=== PATIENT | female | born 1940 ===

== ENCOUNTER 2017-02-18 15:40 | Emergency (ER) | payer MEDICARE, MEDICAID ==
[2017-02-18 16:16] VITALS: BP 126/71; PULSE 64; RESP 18; TEMP 98; O2SAT 99
--- NOTE | 2017-02-18 16:58 | ED PDOC ---
Lower Extremity Pain/Injury Time Seen by Provider: 02/18/17 16:24 Chief Complaint (Nursing): Lower Extremity Problem/Injury Chief Complaint (Provider): Lower Extremity Problem/Injury History Per: Patient History/Exam Limitations: no limitations Onset/Duration Of Symptoms: Days (1 Week ) Severity: Mild Additional Complaint(s): 76 y/o female patient presenting to the ED with right knee pain. PT states that the pain has been present for one week and she has taking Motrin but it did not resolve the problem. She denies falling or any trauma and no past medical history in relation to the knee. - Knee Description Of Injury: Other (non-traumatic) - Risk Factors DVT Risk Factors: Pos: None, Decreased Mobility Past Medical History Reviewed: Historical Data, Nursing Documentation, Vital Signs Vital Signs: Last Vital Signs Temp 98.0 F 02/18/17 16:14 Pulse 64 02/18/17 16:14 Resp 18 02/18/17 16:14 BP 126/71 02/18/17 16:14 Pulse Ox 99 02/18/17 16:14 - Medical History PMH: Arthritis, Back Problems, Diabetes, HTN - Surgical History Surgical History: No Surg Hx - Family History Family History: States: Unknown Family Hx - Living Arrangements Living Arrangements: With Family - Social History Current smoker - smoking cessation education provided: No Alcohol: None Drugs: Denies - Home Medications Home Medications: Ambulatory Orders Medication Instructions Recorded Cyclobenzaprine [Cyclobenzaprine 10 mg PO TID PRN #15 tab 10/19/16 HCl] Losartan/Hydrochlorothiazide 1 tab PO DAILY 10/19/16 [Losartan-Hctz 50-12.5 mg Tab] Metoprolol Tartrate [Lopressor] 25 mg PO DAILY 10/19/16 Omeprazole [Omeprazole] 20 mg PO DAILY 10/19/16 SITagliptin [Januvia] 100 mg PO DAILY 10/19/16 Simvastatin [Simvastatin] 40 mg PO DAILY 10/19/16 metFORMIN [glucOPHAGE] 500 mg PO BID 10/19/16 traMADol [Ultram] 50 mg PO Q6H PRN #15 tab 02/18/17 - Allergies Allergies/Adverse Reactions: Allergies Allergy/AdvReac Type Severity Reaction Status Date / Time No Known Allergies Allergy Verified 02/18/17 16:13 Review of Systems ROS Statement: Except As Marked, All Systems Reviewed And Found Negative Musculoskeletal: Positive for: Leg Pain ((Right Knee Pain localized)) Physical Exam - Reviewed Nursing Documentation Reviewed: Yes Vital Signs Reviewed: Yes - Physical Exam Appears: Positive for: Non-toxic, No Acute Distress Skin: Positive for: Normal Color, Warm Eye Exam: Positive for: Normal appearance ENT: Positive for: Normal ENT Inspection Neck: Positive for: Normal Respiratory: Negative for: Accessory Muscle Use, Respiratory Distress Extremity: Positive for: Normal ROM ((Right Knee)Pulses intact). Negative for: Pedal Edema, Deformity Neurologic/Psych: Positive for: Alert, Oriented. Negative for: Motor/Sensory Deficits - ECG O2 Sat by Pulse Oximetry: 99 (RA) Pulse Ox Interpretation: Normal Medical Decision Making Medical Decision Making: Time:1624 Initial impression: Right Knee Pain Initial plan: --Tramadol (Ultram) 50MG --Knee 3 views X-Ray RT Scribe Attestation: Documented by Dorina Read acting as a scribe for ALEJANDRINA Dominguez MD Scribe Attestation: All medical record entries made by the Scribe were at my direction and personally dictated by me. I have reviewed the chart and agree that the record accurately reflects my personal performance of the history, physical exam, medical decision making, and the department course for this patient. I have also personally directed, reviewed, and agree with the discharge instructions and disposition. Disposition - Clinical Impression Clinical Impression: Arthritis - Patient ED Disposition Is Patient to be Admitted: No Counseled Patient/Family Regarding: Diagnosis, Need For Followup, Rx Given - Disposition Referrals: [facility] [place] [Outside] [facility] [place] [Outside] Disposition: Routine/Home Disposition Time: 18:16 Condition: GOOD Prescriptions: traMADol [Ultram] 50 mg PO Q6H PRN #15 tab PRN Reason: Pain Instructions: Arthritis (ED) Print Language: GREENLANDIC
--- NOTE | 2017-02-18 18:53 | RAD ---
PROCEDURE: Right Knee Radiographs. HISTORY: knee pain, non-traumatic COMPARISON: None. FINDINGS: BONES: Normal. No fracture. JOINTS: Normal. No osteoarthritis. JOINT EFFUSION: None. OTHER FINDINGS: None. IMPRESSION: No acute findings related to/accounting for the clinical presentation.
== END 2017-02-18 18:43 | disposition home or self-care (01) ==
LOC: H.ER 15:40
DX: M17.11 Unilateral primary osteoarthritis, right knee (principal)

== ENCOUNTER 2017-03-09 13:55 | Inpatient (IN) | payer MEDICAID, MEDICARE ==
[2017-03-09 13:55] VITALS: BMI 30.9
[2017-03-09] MEDS ORDERED: Iohexol 240 (50 ml) PO STA (14:31)
[2017-03-09] MEDS ORDERED: Sodium Chloride 0.9% 1,000 ML IV STA (14:32)
[2017-03-09] MEDS ORDERED: Sodium Chloride 0.9% 500 ML IV STA ×2 (14:32→20:25)
[2017-03-09] MEDS ORDERED: Iohexol 240 (50 ml) ONE (14:33)
--- NOTE | 2017-03-09 14:49 | ED PDOC ---
HPI: Abdomen <Patt Moran - Last Filed: 03/09/17 18:57> Chief Complaint (Provider): Abdominal Pain History Per: Patient History/Exam Limitations: no limitations Onset/Duration Of Symptoms: Hrs (1) Current Symptoms Are (Timing): Still Present Severity: Moderate Quality Of Discomfort: "Pain" Associated Symptoms: Nausea, Vomiting. denies: Chills, Diarrhea, Chest Pain, Constipation <Amaris Bone - Last Filed: 03/18/17 09:43> Time Seen by Provider: 03/09/17 14:10 Chief Complaint (Nursing): Abdominal Pain Additional Complaint(s): Antonina Allred is a 76 y/o female, with a past medical history of Diabetes Mellitus, Hypertension, and Cardiac Disease, presenting to the ER on 03/09/2017 with complaints of abdominal pain associated with nausea and vomiting onset one hour prior to arrival. Patient is also complaining of back pain but she denies any chills, chest pain, constipation, diarrhea or shortness of breath. Patient also states she took pain medications before arriving to the ED. (Amaris Bone) Past Medical History <Patt Moran - Last Filed: 03/09/17 18:57> Reviewed: Historical Data, Nursing Documentation, Vital Signs - Medical History PMH: Arthritis, Back Problems, Diabetes, HTN - Surgical History Surgical History: Appendectomy Other surgeries: cardiac surgery - Family History Family History: States: Unknown Family Hx - Social History Current smoker - smoking cessation education provided: No Alcohol: None Drugs: Denies <Amaris Bone - Last Filed: 03/18/17 09:43> Vital Signs: Last Vital Signs Temp 98.5 F 03/11/17 12:00 Pulse 65 03/11/17 12:00 Resp 18 03/11/17 12:00 BP 111/71 03/11/17 12:00 Pulse Ox 96 03/11/17 12:00 - Home Medications Home Medications: Ambulatory Orders Medication Instructions Recorded Losartan/Hydrochlorothiazide 1 tab PO DAILY 10/19/16 [Losartan-Hctz 50-12.5 mg Tab] Metoprolol Tartrate [Lopressor] 25 mg PO DAILY 10/19/16 SITagliptin [Januvia] 100 mg PO DAILY 10/19/16 Simvastatin 40 mg PO HS 10/19/16 metFORMIN [glucOPHAGE] 500 mg PO BID 10/19/16 Alendronate [Fosamax] 70 mg PO WE 03/09/17 Aspirin [Ecotrin] 81 mg PO DAILY 03/09/17 Dulaglutide [Trulicity] 0.75 mg SC 03/09/17 Ergocalciferol (Vitamin D2) 50,000 unit PO WE 03/09/17 [Vitamin D2] Insulin Glargine, Recombina 10 unit SC HS 03/09/17 [Lantus] Multivitamin/Iron/Folic Acid 1 tab PO DAILY 03/09/17 [Centrum Women Tablet] Omeprazole 40 mg PO DAILY 03/09/17 - Allergies Allergies/Adverse Reactions: Allergies Allergy/AdvReac Type Severity Reaction Status Date / Time No Known Allergies Allergy Verified 03/09/17 13:58 Review of Systems ROS Statement: Except As Marked, All Systems Reviewed And Found Negative Constitutional: Negative for: Chills Cardiovascular: Negative for: Chest Pain Respiratory: Negative for: Shortness of Breath Gastrointestinal: Positive for: Nausea, Vomiting, Abdominal Pain. Negative for : Diarrhea, Constipation Musculoskeletal: Positive for: Back Pain <Amaris Bone F - Last Filed: 03/18/17 09:43> Physical Exam - Reviewed Nursing Documentation Reviewed: Yes Vital Signs Reviewed: Yes - Physical Exam Appears: Positive for: Non-toxic, In Acute Distress ((+) moderate painful distress ) Head Exam: Positive for: ATRAUMATIC Skin: Positive for: Normal Color. Negative for: Rash Eye Exam: Positive for: Normal appearance, EOMI, PERRL ENT: Positive for: Normal ENT Inspection. Negative for: Pharyngeal Erythema, Tonsillar Exudate, Tonsillar Swelling Neck: Positive for: Normal, Painless ROM, Supple Cardiovascular/Chest: Positive for: Regular Rate, Rhythm. Negative for: Murmur Respiratory: Positive for: Normal Breath Sounds. Negative for: Wheezing, Respiratory Distress Gastrointestinal/Abdominal: Positive for: Normal Exam, Tenderness ((+) generalized ). Negative for: Guarding, Rebound Back: Positive for: Normal Inspection. Negative for: L CVA Tenderness, R CVA Tenderness Extremity: Positive for: Normal ROM. Negative for: Deformity, Swelling Neurologic/Psych: Positive for: Alert, Oriented. Negative for: Motor/Sensory Deficits <Amaris Bone F - Last Filed: 03/18/17 09:43> - Laboratory Results Result Diagrams: 03/09/17 15:10 03/09/17 15:10 <Patt Moran - Last Filed: 03/09/17 18:57> - Laboratory Results Result Diagrams: 03/09/17 15:10 03/09/17 15:10 - ECG O2 Sat by Pulse Oximetry: 93 Pulse Ox Interpretation: Abnormal <Amaris Bone - Last Filed: 03/18/17 09:43> - ECG Interpretation Of ECG: ST @ 123, TWI I, aVL (changed from 10/19/16). (Amaris Bone) Medical Decision Making <Patt Moran - Last Filed: 03/09/17 18:57> <Amaris Bnoe - Last Filed: 03/18/17 09:43> Medical Decision Making: Patient signed out to me by Dr. Bone and a 76 y/o F pending CT to r/o PE and assess for intrabdominal pathology. CT negative for PE but shows prominence at head of pancreas and MRI reccommended as pancreatic head lesion cannot be ruled out. No other acute intrabdominal pathology. Udip shows negative nitrates but trace leukocytes. Patient denies dysuria and has normal wbc. Ucx sent. Dr. Bone reported that ekg was changed from prior, trop x 1 negative and patient needed tele observation for ekg change due to multiple risk factors. Paged Dr. Mishra, PMD and will transfer to tele observation (Patt Moran) 14:10 Initial Impression- 76 y/o female with generalized abdominal pain Initial Plan- * CT Abd Pelvis PO & IV * EKG * CMP * Lipase * Urine Dip * CBC w/ differential * PTT * PT * Omnipaque 50 ml PO * Morphine 2 mg IV * Sodium Chloride 1,000 ml IV * Zofran 4 mg IV * Urinalysis Pt will be placed under ED Observation. See ED OBS for further progress Documented by Brian Akhtar, acting as a scribe for Amaris Bone MD All medical record entries made by the Scribe were at my direction and personally dictated by me. I have reviewed the chart and agree that the record accurately reflects my personal performance of the history, physical exam, medical decision making, and the department course for this patient. I have also personally directed, reviewed, and agree with the discharge instructions and disposition. (Amaris Bone) ED OBSERVATION <Patt Moran - Last Filed: 03/09/17 18:57> Date of observation admission: 03/09/17 Time of observation admission: 14:35 <Amaris Bone - Last Filed: 03/18/17 09:43> - Observation admission statement Patient is being placed in observation because:: Secondary to extensive ED workup (Amaris Bone) - Goals of Observation Goals of observation are:: Pending Labs, CT results, re-evaluation and disposition. (Amaris Bone) Disposition <Patt Moran - Last Filed: 03/09/17 18:57> - Patient ED Disposition Is Patient to be Admitted: Transfer of Care - Disposition Disposition: Transfer of Care Disposition Time: 17:00 Patient Signed Over To: Patt Moran <Amaris Bone - Last Filed: 03/18/17 09:43> - Clinical Impression Clinical Impression: Abdominal pain - Disposition Condition: STABLE
[2017-03-09 15:23] LABS: BASO % 0.2 % (0.0-2.0); EOS % 0.5 % (0.0-4.0); HEMATOCRIT 43.4 % (34.0-47.0); LYMPH # 0.6 K/uL (1.0-4.3); LYMPH % 8.6 % (20.0-40.0); MEAN CELL VOLUME 80.3 fl (81.0-99.0); MEAN CORPUSCULAR HEMOGLOBIN 25.9 pg (27.0-31.0); MEAN CORPUSCULAR HGB CONC 32.3 g/dL (33.0-37.0); MEAN PLATELET VOLUME 9.2 fl (7.2-11.7); MONO # 0.1 K/uL (0.0-0.8); MONO % 0.8 % (0.0-10.0); NEUT # 6.6 K/uL (1.8-7.0); NEUT % 89.9 % (50.0-75.0); NRBC % 0.2 % (0.0-0.0); PLATELET COUNT 263 K/uL (130-400); RED CELL DISTRIBUTION WIDTH 15.8 % (11.5-14.5); WHITE BLOOD COUNT 7.3 K/uL (4.8-10.8)
[2017-03-09 15:37] LABS: ALB/GLOB RATIO 1.1 (1.0-2.1); ALKALINE PHOSPHATASE 110 U/L (38-126); ALT/SGPT 35 U/L (9-52); AST/SGOT 37 U/L (14-36); BILIRUBIN,TOTAL 0.8 mg/dl (0.2-1.3); BLOOD UREA NITROGEN 19 mg/dl (7-17); CALCIUM 9.2 mg/dL (8.4-10.2); CARBON DIOXIDE 28 mmol/L (22-30); CHLORIDE 100 mmol/L (98-107); GFR AFRICAN-AMERICAN > 60; GLUCOSE,RANDOM 112 mg/dL (65-105); LIPASE 144 U/L (23-300); SODIUM 142 mmol/l (132-148)
[2017-03-09 15:43] LABS: POTASSIUM 3.8 MMOL/L (3.6-5.0)
[2017-03-09 16:07] LABS: PARTIAL THROMBOPLASTIN TIME 22.9 Seconds (25.6-37.1)
[2017-03-09] MEDS ORDERED: Iodixanol 320 MG/ML 100 ML BOTTLE IV ONE (16:28)
[2017-03-09] MEDS ORDERED: Sodium Chloride 0.9% 50 ML IV ONE (16:28)
[2017-03-09 17:16] LABS: EOSINOPHIL 1 % (0-7); NEUTROPHIL 85 % (42-75); TOTAL CELLS COUNTED 100
--- NOTE | 2017-03-09 18:27 | CT ---
PROCEDURE: CT Chest, Abdomen and Pelvis with intravenous contrast HISTORY: Tachycardia COMPARISON: None. TECHNIQUE: IV dose administered: 95 cc Visipaque 320 contrast Radiation dose: Total exam DLP = 1445.36 mGy-cm. This CT exam was performed using one or more of the following dose reduction techniques: Automated exposure control, adjustment of the mA and/or kV according to patient size, and/or use of iterative reconstruction technique. . This study is limited due to large body habitus and suboptimal bolus injection -timing. FINDINGS: CT CHEST WITH CONTRAST: Note that the examination is LUNGS: Lung bermeo are clear without infiltrate effusion or basilar pneumothorax. . Eventration of the left hemidiaphragm. There appears to be some mild atelectasis and or scarring changes in the left lung base and lingular region. Localized pleural fat seen in the left upper lobe along the posterolateral convexity. No evidence of effusion or pneumothorax. MEDIASTINUM: Visualized portions of the pulmonary trunk, right and left main, lobar and proximal segmental branches of the pulmonary arteries appear relatively well opacified with no definitive filling defects seen to suggest central pulmonary embolus. The distal segmental and subsegmental branches are poorly seen due to at aforementioned artifact. Pulmonary trunk measures approximately 2.8 cm. Heart size is within range of normal. There is mild left ventricular hypertrophy. Ascending thoracic aorta measures approximately 3.0 cm and descending thoracic aorta measures approximately 2.4 5 cm. Central airways are midline and patent. No endobronchial lesions. LYMPH NODES: No significant mediastinal or hilar adenopathy. PLEURA: Unremarkable. No pneumothorax. No pleural fluid. BONES: There is mild straightening of the normal thoracic kyphosis however partial/endovaginal stat. OTHER FINDINGS: None. CT ABDOMEN AND PELVIS: LIVER: Liver is borderline enlarged measuring 18 cm in CC dimension. No obvious hepatic mass or collection. GALLBLADDER AND BILE DUCTS: Gallbladder is physiologically distended. No evidence of intraluminal gallbladder calculi. PANCREAS: Unremarkable.The pancreatic duct is slightly prominent at the level of the pancreatic head. Pancreatic head is slightly heterogeneous as well. Recommend follow-up MRI of the pancreas for further evaluation. SPLEEN: Spleen exhibits normal size and attenuation pattern without mass collection or calcification. ADRENALS: No adrenal lesions. KIDNEYS AND URETERS: Kidneys that demonstrate relatively symmetric nephrograms. No evidence of nephrolithiasis or hydronephrosis. Mild nonspecific infiltration changes seen in the perinephric fat. VASCULATURE: Unremarkable. No aortic aneurysm. BOWEL: Evaluation of the bowel is somewhat limited due to the low incomplete opacification. Stomach is distended. Visualized loops of small bowel exhibit normal contour and caliber. No evidence of acute mechanical small bowel obstruction. APPENDIX: Appendix is not seen with any certainty PERITONEUM: Unremarkable. No free fluid. No free air. Small fat containing umbilical hernia. LYMPH NODES: Few small nonspecific retroperitoneal lymph nodes. BLADDER: Urinary bladder is physiologically distended. No evidence of intraluminal urinary bladder calculi. REPRODUCTIVE: The uterus unremarkable. BONES: Mild multilevel degenerative spondylosis of the thoracic and lumbar spine. There is a localized of mild kyphosis centered at the T12-L1 level likely due to minor chronic anterior wedge deformities of the T12 and L1 segments. No acute fracture seen. . OTHER FINDINGS: None. IMPRESSION: Limited evaluation for pulmonary embolus as above. No definitive evidence of central pulmonary embolus. Eventration left hemidiaphragm with atelectasis and or scarring changes left lung base and left lingular region. Slightly heterogeneous appearance of the head of the pancreas with slight prominence of the pancreatic duct at the level of the head and pancreatic body. Possibility of underlying pancreatic head lesion not excluded. Recommend followup MRI of the pancreas for further evaluation Mild nonspecific infiltration changes within the perinephric fat bilaterally.
[2017-03-09 18:32] LABS: RBC URINE 3 /hpf (0-3); URINE BILIRUBIN NEGATIVE (NEGATIVE); URINE BLOOD NEGATIVE (NEGATIVE); URINE COLOR YELLOW (YELLOW); URINE GLUCOSE (UA) NEG (Normal); URINE KETONE NEGATIVE (NEGATIVE); URINE LEUKOCYTE ESTERASE TRACE Leu/uL (Negative); URINE PROTEIN 100 mg/dL (NEGATIVE); URINE UROBILINOGEN 0.2-1.0 mg/dL (0.2-1.0); WBC URINE 4 /hpf (0-5)
[2017-03-09] MEDS: Insulin Lispro (humaLOG) 100 Units/ml Inj SC SCH (23:00)
[2017-03-10] MEDS: Sodium Chloride 0.9% 1,000 ML IV SCH ×3 (00:14→20:34)
[2017-03-10] MEDS: Insulin Detemir 100 Units/ml Inj SC SCH ×3 (00:16→22:09)
[2017-03-10] MEDS: Insulin Lispro (humaLOG) 100 Units/ml Inj SC SCH ×4 (06:37→22:02)
[2017-03-10] MEDS ORDERED: MULTIVITAMIN PO SCH (09:00)
[2017-03-10] MEDS ORDERED: FOLIC ACID PO SCH (09:00)
[2017-03-10] MEDS ORDERED: IRON PO SCH (09:00)
[2017-03-10] MEDS ORDERED: Ergocalciferol 50,000 Intl Units Cap PO SCH (09:00)
[2017-03-10] MEDS: Enoxaparin 40 mg Syringe SC SCH (09:33)
[2017-03-10] MEDS: Multivitamin With Minerals Tab PO SCH (09:33)
[2017-03-10] MEDS: Pantoprazole 40 mg EC Tab PO SCH (09:34)
--- NOTE | 2017-03-10 12:23 | CP.PCM.CON ---
History of Present Illness - History of Present Illness History of Present Illness: 76 yo female with pmh diabetes mellitus and hypertension admitted with nausea, vomiting abd pain. No chest pain reported. Troponin negative. Nonspecific st-t changes on EKG Past Patient History - Past Medical History & Family History Past Medical History?: Yes - Past Social History Smoking Status: Never Smoked - CARDIAC Hx Cardiac Disorders: Yes (HTN/ High cholesterol) Hx Hypertension: Yes - PULMONARY Hx Respiratory Disorders: No - NEUROLOGICAL Hx Neurological Disorder: No - HEENT Hx HEENT Problems: No - RENAL Hx Chronic Kidney Disease: No - ENDOCRINE/METABOLIC Hx Endocrine Disorders: Yes (DM II) Hx Diabetes Mellitus Type 2: Yes - HEMATOLOGICAL/ONCOLOGICAL Hx Blood Disorders: No Hx AIDS: No Hx Human Immunodeficiency Virus (HIV): No - INTEGUMENTARY Hx Dermatological Problems: No - MUSCULOSKELETAL/RHEUMATOLOGICAL Hx Musculoskeletal Disorders: Yes (Back Problems/ Bursitis) Hx Arthritis: Yes Hx Falls: No - GASTROINTESTINAL Hx Gastrointestinal Disorders: No - GENITOURINARY/GYNECOLOGICAL Hx Genitourinary Disorders: No - PSYCHIATRIC Hx Psychophysiologic Disorder: No Hx Substance Use: No - SURGICAL HISTORY Hx Appendectomy: Yes - ANESTHESIA Hx Anesthesia: Yes Hx Anesthesia Reactions: No Hx Malignant Hyperthermia: No Meds Allergies/Adverse Reactions: Allergies Allergy/AdvReac Type Severity Reaction Status Date / Time No Known Allergies Allergy Verified 03/09/17 13:58 - Medications Medications: Current Medications Acetaminophen (Tylenol 325mg Tab) 650 mg PO Q6 PRN PRN Reason: Pain, Mild (1-3) Last Admin: 03/10/17 00:20 Dose: 650 mg Alendronate Sodium (Fosamax) 70 mg PO WE [facility] Aspirin (Ecotrin) 81 mg PO DAILY [facility] Last Admin: 03/10/17 09:34 Dose: 81 mg Atorvastatin Calcium (Lipitor) 20 mg PO HS [facility] Last Admin: 03/10/17 00:12 Dose: 20 mg Enoxaparin Sodium (Lovenox) 40 mg SC DAILY [facility] PRN Reason: Protocol Last Admin: 03/10/17 09:33 Dose: 40 mg Ergocalciferol (Drisdol 50,000 Intl Units Cap) 1 cap PO WE [facility] Last Admin: 03/10/17 09:34 Dose: 1 cap Sodium Chloride (Sodium Chloride 0.9%) 1,000 mls @ 100 mls/hr IV .Q10H [facility] Stop: 03/10/17 23:54 Last Admin: 03/10/17 00:14 Dose: 100 mls/hr Insulin Detemir (Levemir) 10 units SC HS [facility] Last Admin: 03/10/17 00:16 Dose: 10 u Insulin Human Lispro (Humalog) 0 units SC ACHS [facility] PRN Reason: Protocol Last Admin: 03/10/17 06:37 Dose: Not Given Metformin HCl (Glucophage) 500 mg PO BID [facility] Last Admin: 03/10/17 09:35 Dose: Not Given Multivitamins/Minerals (Therapeutic-M Tab) 1 tab PO DAILY [facility] Last Admin: 03/10/17 09:33 Dose: 1 tab Ondansetron HCl (Zofran Inj) 4 mg IVP Q4 PRN PRN Reason: Nausea/Vomiting Pantoprazole Sodium (Protonix Ec Tab) 40 mg PO DAILY [facility] Last Admin: 03/10/17 09:34 Dose: 40 mg Sitagliptin Phosphate (Januvia) 100 mg PO DAILY [facility] Last Admin: 03/10/17 09:34 Dose: 100 mg Physical Exam - Neck Exam Neck exam: Positive for: Normal Inspection - Respiratory Exam Respiratory Exam: NORMAL BREATHING PATTERN - Cardiovascular Exam Cardiovascular Exam: REGULAR RHYTHM - GI/Abdominal Exam GI & Abdominal Exam: Normal Bowel Sounds - Extremities Exam Extremities exam: Positive for: normal inspection Results - Vital Signs Recent Vital Signs: Last Vital Signs Temp 98.5 F 03/10/17 11:59 Pulse 73 03/10/17 11:59 Resp 18 03/10/17 11:59 BP 96/61 L 03/10/17 11:59 Pulse Ox 99 03/10/17 11:59 - Labs Result Diagrams: 03/09/17 15:10 03/09/17 15:10 Labs: Laboratory Results - last 24 hr 03/09/17 03/09/17 03/09/17 14:36 15:10 15:10 WBC 7.3 RBC 5.41 H Hgb 14.0 D Hct 43.4 MCV 80.3 L MCH 25.9 L MCHC 32.3 L RDW 15.8 H Plt Count 263 MPV 9.2 Neut % (Auto) 89.9 H Lymph % (Auto) 8.6 L [place] % (Auto) 0.8 Eos % (Auto) 0.5 Baso % (Auto) 0.2 Neut # 6.6 Lymph # 0.6 L [place] # 0.1 Eos # 0.0 Baso # 0.0 Neutrophils % (Manual) 85 H Lymphocytes % (Manual) 13 L Monocytes % (Manual) 1 Eosinophils % (Manual) 1 Platelet Estimate Normal PT INR APTT D-Dimer, Quantitative Sodium 142 Potassium 3.8 Chloride 100 Carbon Dioxide 28 Anion Gap 18 BUN 19 H Creatinine 0.7 Est GFR ( Amer) > 60 Est GFR (Non-Af Amer) > 60 POC Glucose (mg/dL) 97 Random Glucose 112 H Calcium 9.2 Total Bilirubin 0.8 AST 37 H D ALT 35 Alkaline Phosphatase 110 Troponin I < 0.0120 Total Protein 8.0 Albumin 4.2 Globulin 3.8 Albumin/Globulin Ratio 1.1 Lipase 144 Urine Color Urine Clarity Urine pH Ur Specific Mcd[place] Urine Protein Urine Glucose (UA) Urine Ketones Urine Blood Urine Nitrate Urine Bilirubin Urine Urobilinogen Ur Leukocyte Esterase Urine RBC (Auto) Urine Microscopic WBC Ur Squamous Epith Cells 03/09/17 03/09/17 03/09/17 15:10 18:00 21:13 WBC RBC Hgb Hct MCV MCH MCHC RDW Plt Count MPV Neut % (Auto) Lymph % (Auto) [place] % (Auto) Eos % (Auto) Baso % (Auto) Neut # Lymph # [place] # Eos # Baso # Neutrophils % (Manual) Lymphocytes % (Manual) Monocytes % (Manual) Eosinophils % (Manual) Platelet Estimate PT 11.1 INR 1.0 APTT 22.9 L D-Dimer, Quantitative 3817 H Sodium Potassium Chloride Carbon Dioxide Anion Gap BUN Creatinine Est GFR ( Amer) Est GFR (Non-Af Amer) POC Glucose (mg/dL) 168 H Random Glucose Calcium Total Bilirubin AST ALT Alkaline Phosphatase Troponin I Total Protein Albumin Globulin Albumin/Globulin Ratio Lipase Urine Color Yellow Urine Clarity Slighty-cloudy Urine pH 6.0 Ur Specific Mcdaniels 1.013 Urine Protein 100 Urine Glucose (UA) Neg Urine Ketones Negative Urine Blood Negative Urine Nitrate Negative Urine Bilirubin Negative Urine Urobilinogen 0.2-1.0 Ur Leukocyte Esterase Trace Urine RBC (Auto) 3 Urine Microscopic WBC 4 Ur Squamous Epith Cells 4 03/10/17 03/10/17 03/10/17 00:00 05:00 05:04 WBC RBC Hgb Hct MCV MCH MCHC RDW Plt Count MPV Neut % (Auto) Lymph % (Auto) [place] % (Auto) Eos % (Auto) Baso % (Auto) Neut # Lymph # [place] # Eos # Baso # Neutrophils % (Manual) Lymphocytes % (Manual) Monocytes % (Manual) Eosinophils % (Manual) Platelet Estimate PT INR APTT D-Dimer, Quantitative Sodium Potassium Chloride Carbon Dioxide Anion Gap BUN Creatinine Est GFR ( Amer) Est GFR (Non-Af Amer) POC Glucose (mg/dL) 142 H Random Glucose Calcium Total Bilirubin AST ALT Alkaline Phosphatase Troponin I < 0.0120 < 0.0120 Total Protein Albumin Globulin Albumin/Globulin Ratio Lipase Urine Color Urine Clarity Urine pH Ur Specific Mcd[place]iels Urine Protein Urine Glucose (UA) Urine Ketones Urine Blood Urine Nitrate Urine Bilirubin Urine Urobilinogen Ur Leukocyte Esterase Urine RBC (Auto) Urine Microscopic WBC Ur Squamous Epith Cells 03/10/17 11:20 WBC RBC Hgb Hct MCV MCH MCHC RDW Plt Count MPV Neut % (Auto) Lymph % (Auto) [place] % (Auto) Eos % (Auto) Baso % (Auto) Neut # Lymph # [place] # Eos # Baso # Neutrophils % (Manual) Lymphocytes % (Manual) Monocytes % (Manual) Eosinophils % (Manual) Platelet Estimate PT INR APTT D-Dimer, Quantitative Sodium Potassium Chloride Carbon Dioxide Anion Gap BUN Creatinine Est GFR ( Amer) Est GFR (Non-Af Amer) POC Glucose (mg/dL) 168 H Random Glucose Calcium Total Bilirubin AST ALT Alkaline Phosphatase Troponin I Total Protein Albumin Globulin Albumin/Globulin Ratio Lipase Urine Color Urine Clarity Urine pH Ur Specific Mcd[place]iels Urine Protein Urine Glucose (UA) Urine Ketones Urine Blood Urine Nitrate Urine Bilirubin Urine Urobilinogen Ur Leukocyte Esterase Urine RBC (Auto) Urine Microscopic WBC Ur Squamous Epith Cells Assessment & Plan - Assessment and Plan (Free Text) Assessment: No acute coronary syndrome. EKG changes nonspecific. Troponin is negative Plan: Proceed with w/u for etiology of abdominal pain No cardiac intervention at this time Can f/u as outpt
--- NOTE | 2017-03-10 15:50 | CP.PCM.HP ---
History of Present Illness - History of Present Illness History of Present Illness: 76 years old H/F presented with frequent vomiting and epigastric pain started on the day of admission. Patient was evaluated in ER and was admitted for further managemnt. Present on Admission - Present on Admission History of DVT/PE: No History of Uncontrolled Diabetes: No Urinary Catheter: No Decubitus Ulcer Present: No Past Patient History - Past Medical History & Family History Past Medical History?: Yes - Past Social History Smoking Status: Never Smoked - CARDIAC Hx Cardiac Disorders: Yes (HTN/ High cholesterol) Hx Hypertension: Yes - PULMONARY Hx Respiratory Disorders: No - NEUROLOGICAL Hx Neurological Disorder: No - HEENT Hx HEENT Problems: No - RENAL Hx Chronic Kidney Disease: No - ENDOCRINE/METABOLIC Hx Endocrine Disorders: Yes (DM II) Hx Diabetes Mellitus Type 2: Yes - HEMATOLOGICAL/ONCOLOGICAL Hx Blood Disorders: No Hx AIDS: No Hx Human Immunodeficiency Virus (HIV): No - INTEGUMENTARY Hx Dermatological Problems: No - MUSCULOSKELETAL/RHEUMATOLOGICAL Hx Musculoskeletal Disorders: Yes (Back Problems/ Bursitis) Hx Arthritis: Yes Hx Falls: No - GASTROINTESTINAL Hx Gastrointestinal Disorders: No - GENITOURINARY/GYNECOLOGICAL Hx Genitourinary Disorders: No - PSYCHIATRIC Hx Psychophysiologic Disorder: No Hx Substance Use: No - SURGICAL HISTORY Hx Appendectomy: Yes - ANESTHESIA Hx Anesthesia: Yes Hx Anesthesia Reactions: No Hx Malignant Hyperthermia: No Meds Allergies/Adverse Reactions: Allergies Allergy/AdvReac Type Severity Reaction Status Date / Time No Known Allergies Allergy Verified 03/09/17 13:58 Physical Exam - Head Exam Head Exam: ATRAUMATIC - Eye Exam Pupil Exam: NORMAL ACCOMODATION - Exam External exam: NORMAL EXTERNAL EXAM Results - Vital Signs Recent Vital Signs: Last Vital Signs Temp 98.3 F 03/10/17 15:38 Pulse 78 03/10/17 15:38 Resp 20 03/10/17 15:38 BP 101/69 03/10/17 15:38 Pulse Ox 95 03/10/17 15:38 - Labs Result Diagrams: 03/09/17 15:10 03/09/17 15:10 Labs: Laboratory Results - last 24 hr 03/09/17 03/09/17 03/09/17 14:36 15:10 15:10 Neutrophils % (Manual) 85 H Lymphocytes % (Manual) 13 L Monocytes % (Manual) 1 Eosinophils % (Manual) 1 Platelet Estimate Normal PT 11.1 INR 1.0 APTT 22.9 L D-Dimer, Quantitative 3817 H POC Glucose (mg/dL) 97 Troponin I Urine Color Urine Clarity Urine pH Ur Specific [place] Urine Protein Urine Glucose (UA) Urine Ketones Urine Blood Urine Nitrate Urine Bilirubin Urine Urobilinogen Ur Leukocyte Esterase Urine RBC (Auto) Urine Microscopic WBC Ur Squamous Epith Cells 03/09/17 03/09/17 03/10/17 18:00 21:13 00:00 Neutrophils % (Manual) Lymphocytes % (Manual) Monocytes % (Manual) Eosinophils % (Manual) Platelet Estimate PT INR APTT D-Dimer, Quantitative POC Glucose (mg/dL) 168 H Troponin I < 0.0120 Urine Color Yellow Urine Clarity Slighty-cloudy Urine pH 6.0 Ur Specific [place] 1.013 Urine Protein 100 Urine Glucose (UA) Neg Urine Ketones Negative Urine Blood Negative Urine Nitrate Negative Urine Bilirubin Negative Urine Urobilinogen 0.2-1.0 Ur Leukocyte Esterase Trace Urine RBC (Auto) 3 Urine Microscopic WBC 4 Ur Squamous Epith Cells 4 03/10/17 03/10/17 03/10/17 05:00 05:04 11:20 Neutrophils % (Manual) Lymphocytes % (Manual) Monocytes % (Manual) Eosinophils % (Manual) Platelet Estimate PT INR APTT D-Dimer, Quantitative POC Glucose (mg/dL) 142 H 168 H Troponin I < 0.0120 Urine Color Urine Clarity Urine pH Ur Specific [place] Urine Protein Urine Glucose (UA) Urine Ketones Urine Blood Urine Nitrate Urine Bilirubin Urine Urobilinogen Ur Leukocyte Esterase Urine RBC (Auto) Urine Microscopic WBC Ur Squamous Epith Cells Assessment & Plan - Assessment and Plan (Free Text) Assessment: Acute gastritis HTN Degenerative spine disease Plan: Antiemitics PPI Cardiology consult , R/O VT
[2017-03-10] MEDS ORDERED: ALENDRONATE 70 MG TAB PO SCH (23:13)
[2017-03-11 04:48] VITALS: RESP 18
[2017-03-11] MEDS: Insulin Lispro (humaLOG) 100 Units/ml Inj SC SCH ×2 (06:46→13:20)
[2017-03-11] MEDS: Enoxaparin 40 mg Syringe SC SCH (09:12)
[2017-03-11] MEDS: Pantoprazole 40 mg EC Tab PO SCH (09:12)
[2017-03-11] MEDS: Multivitamin With Minerals Tab PO SCH (09:13)
--- NOTE | 2017-03-11 11:49 | CARD ---
APPROVED REPORT EKG Measurement Heart [id number] [id number] <Conclusion> Sinus tachycardia ST & T wave abnormality, consider lateral ischemia Abnormal ECG
[2017-03-11 12:41] VITALS: BP 111/71; PULSE 65; TEMP 98.5
--- NOTE | 2017-03-12 16:12 | CP.PCM.DIS ---
Provider - Provider Date of Admission: 03/10/17 15:57 Attending physician: Jony Mishra MD Time Spent in preparation of Discharge (in minutes): 25 Diagnosis - Discharge Diagnosis (1) Gastritis Status: Acute (2) Hypertension Status: Acute Hospital Course - Lab Results Lab Results: Most Recent Lab Values WBC 7.3 K/uL (4.8-10.8) 03/09/17 15:10 RBC 5.41 Mil/uL (3.80-5.20) H 03/09/17 15:10 Hgb 14.0 g/dL (12.0-16.0) D 03/09/17 15:10 Hct 43.4 % (34.0-47.0) 03/09/17 15:10 MCV 80.3 fl (81.0-99.0) L 03/09/17 15:10 MCH 25.9 pg (27.0-31.0) L 03/09/17 15:10 MCHC 32.3 g/dL (33.0-37.0) L 03/09/17 15:10 RDW 15.8 % (11.5-14.5) H 03/09/17 15:10 Plt Count 263 K/uL (130-400) 03/09/17 15:10 MPV 9.2 fl (7.2-11.7) 03/09/17 15:10 Neut % (Auto) 89.9 % (50.0-75.0) H 03/09/17 15:10 Lymph % (Auto) 8.6 % (20.0-40.0) L 03/09/17 15:10 [place] % (Auto) 0.8 % (0.0-10.0) 03/09/17 15:10 Eos % (Auto) 0.5 % (0.0-4.0) 03/09/17 15:10 Baso % (Auto) 0.2 % (0.0-2.0) 03/09/17 15:10 Neut # 6.6 K/uL (1.8-7.0) 03/09/17 15:10 Lymph # 0.6 K/uL (1.0-4.3) L 03/09/17 15:10 [place] # 0.1 K/uL (0.0-0.8) 03/09/17 15:10 Eos # 0.0 K/uL (0.0-0.7) 03/09/17 15:10 Baso # 0.0 K/uL (0.0-0.2) 03/09/17 15:10 Neutrophils % (Manual) 85 % (42-75) H 03/09/17 15:10 Lymphocytes % (Manual) 13 % (20-50) L 03/09/17 15:10 Monocytes % (Manual) 1 % (0-10) 03/09/17 15:10 Eosinophils % (Manual) 1 % (0-7) 03/09/17 15:10 Platelet Estimate Normal (NORMAL) 03/09/17 15:10 PT 11.1 Seconds (9.8-13.1) 03/09/17 15:10 INR 1.0 (0.9-1.2) 03/09/17 15:10 APTT 22.9 Seconds (25.6-37.1) L 03/09/17 15:10 D-Dimer, Quantitative 3817 ng/mlDDU (0-230) H 03/09/17 15:10 Sodium 142 mmol/l (132-148) 03/09/17 15:10 Potassium 3.8 MMOL/L (3.6-5.0) 03/09/17 15:10 Chloride 100 mmol/L (98-107) 03/09/17 15:10 Carbon Dioxide 28 mmol/L (22-30) 03/09/17 15:10 Anion Gap 18 (10-20) 03/09/17 15:10 BUN 19 mg/dl (7-17) H 03/09/17 15:10 Creatinine 0.7 mg/dL (0.7-1.2) 03/09/17 15:10 Est GFR ( Amer) > 60 03/09/17 15:10 Est GFR (Non-Af Amer) > 60 03/09/17 15:10 POC Glucose (mg/dL) 171 mg/dL (65-110) H 03/11/17 11:09 Random Glucose 112 mg/dL (65-105) H 03/09/17 15:10 Calcium 9.2 mg/dL (8.4-10.2) 03/09/17 15:10 Total Bilirubin 0.8 mg/dl (0.2-1.3) 03/09/17 15:10 AST 37 U/L (14-36) H D 03/09/17 15:10 ALT 35 U/L (9-52) 03/09/17 15:10 Alkaline Phosphatase 110 U/L (38-126) 03/09/17 15:10 Troponin I < 0.0120 ng/mL (0.00-0.120) 03/10/17 16:15 Total Protein 8.0 G/DL (6.3-8.2) 03/09/17 15:10 Albumin 4.2 g/dL (3.5-5.0) 03/09/17 15:10 Globulin 3.8 gm/dL (2.2-3.9) 03/09/17 15:10 Albumin/Globulin Ratio 1.1 (1.0-2.1) 03/09/17 15:10 Lipase 144 U/L (23-300) 03/09/17 15:10 Urine Color Yellow (YELLOW) 03/09/17 18:00 Urine Clarity Slighty-cloudy (Clear) 03/09/17 18:00 Urine pH 6.0 (5.0-8.0) 03/09/17 18:00 Ur Specific [place] 1.013 (1.003-1.030) 03/09/17 18:00 Urine Protein 100 mg/dL (NEGATIVE) 03/09/17 18:00 Urine Glucose (UA) Neg mg/dL (Normal) 03/09/17 18:00 Urine Ketones Negative mg/dL (NEGATIVE) 03/09/17 18:00 Urine Blood Negative (NEGATIVE) 03/09/17 18:00 Urine Nitrate Negative (NEGATIVE) 03/09/17 18:00 Urine Bilirubin Negative (NEGATIVE) 03/09/17 18:00 Urine Urobilinogen 0.2-1.0 mg/dL (0.2-1.0) 03/09/17 18:00 Ur Leukocyte Esterase Trace [place]/uL (Negative) 03/09/17 18:00 Urine RBC (Auto) 3 /hpf (0-3) 03/09/17 18:00 Urine Microscopic WBC 4 /hpf (0-5) 03/09/17 18:00 Ur Squamous Epith Cells 4 /hpf (0-5) 03/09/17 18:00 - Date & Time of H&P Date of H&P: 03/11/17 Time of H&P: 13:00 Discharge Exam - Head Exam Head Exam: ATRAUMATIC, NORMOCEPHALIC - Eye Exam Eye Exam: Normal appearance, PERRL Pupil Exam: PERRL - ENT Exam ENT Exam: Mucous Membranes Moist - Neck Exam Neck exam: Full Rom - Respiratory Exam Respiratory Exam: Clear to PA & Lateral, NORMAL BREATHING PATTERN - Cardiovascular Exam Cardiovascular Exam: REGULAR RHYTHM - GI/Abdominal Exam GI & Abdominal Exam: Normal Bowel Sounds - Extremities Exam Extremities exam: full ROM - Neurological Exam Neurological exam: Alert, Normal Gait, Oriented x3, Reflexes Normal - Skin Skin Exam: Normal Color Discharge Plan - Follow Up Plan Condition: FAIR Disposition: HOME/ ROUTINE Instructions: Low Back Strain (DC) Additional Instructions: F/U with GI , regarding ? pncreatic mass , refused MRI.
[2017-03-18 09:43] VITALS: O2SAT 93
== END 2017-03-11 14:57 | disposition home or self-care (01) | DRG 392 ==
LOC: H.ER 13:55 → H.EROBSV 14:31 → H.ERHOLD 18:41 → H.TEL 21:13 → OBSVTOIN 03-10 15:57
PROVIDERS: ADMIT Internal Medicine; ATTEND Internal Medicine
DX: K29.00 Acute gastritis without bleeding (principal); E11.9 Type 2 diabetes mellitus without complications; I10 Essential (primary) hypertension; E78.00 Pure hypercholesterolemia, unspecified; M19.90 Unspecified osteoarthritis, unspecified site

== ENCOUNTER 2017-08-29 13:10 | Observation (INO) | payer MEDICARE ==
[2017-08-29 13:11] VITALS: BMI 30.2
[2017-08-29 14:17] LABS: BASO % 0.4 % (0.0-2.0); EOS # 0.2 K/uL (0.0-0.7); EOS % 1.9 % (0.0-4.0); HEMATOCRIT 37.1 % (34.0-47.0); LYMPH # 2.3 K/uL (1.0-4.3); LYMPH % 22.5 % (20.0-40.0); MEAN CELL VOLUME 81.5 fl (81.0-99.0); MEAN CORPUSCULAR HEMOGLOBIN 25.6 pg (27.0-31.0); MEAN CORPUSCULAR HGB CONC 31.4 g/dL (33.0-37.0); MEAN PLATELET VOLUME 9.8 fl (7.2-11.7); MONO # 0.5 K/uL (0.0-0.8); MONO % 5.2 % (0.0-10.0); NEUT # 7.2 K/uL (1.8-7.0); NRBC % 0.1 % (0.0-0.0); RED CELL DISTRIBUTION WIDTH 16.1 % (11.5-14.5); WHITE BLOOD COUNT 10.3 K/uL (4.8-10.8)
[2017-08-29 14:37] LABS: ALKALINE PHOSPHATASE 68 U/L (38-126); ALT/SGPT 21 U/L (9-52); AST/SGOT 23 U/L (14-36); BILIRUBIN,TOTAL 0.5 mg/dl (0.2-1.3); BLOOD UREA NITROGEN 18 mg/dl (7-17); CALCIUM 9.1 mg/dL (8.4-10.2); CARBON DIOXIDE 32 mmol/L (22-30); CHLORIDE 102 mmol/L (98-107); GFR AFRICAN-AMERICAN > 60; GLUCOSE,RANDOM 166 mg/dL (65-105); POTASSIUM 3.9 MMOL/L (3.6-5.0); SODIUM 139 mmol/l (132-148); TOTAL PROTEIN 6.5 G/DL (6.3-8.2)
[2017-08-29 14:51] LABS: ALB/GLOB RATIO 1.3 (1.0-2.1)
--- NOTE | 2017-08-29 14:53 | ED PDOC ---
HPI: Chest Pain Time Seen by Provider: 08/29/17 13:37 Chief Complaint (Nursing): Chest Pain Chief Complaint (Provider): chest pain History Per: Patient, Embedder (#13) History/Exam Limitations: no limitations Onset/Duration Of Symptoms: Days (1) Current Symptoms Are (Timing): Better Severity: Moderate Quality: Sharp Associated Symptoms: denies: Nausea, Dyspnea, Diaphoresis Modifying Factors: None Exacerbating Factors: None Alleviating Factors: None Additional Complaint(s): 77yo female c/o central sharp chest pain last night which was brief but intense. Resolved spontaneously. No dyspnea, cough, fever or dizziness. Past Medical History Reviewed: Historical Data, Nursing Documentation, Vital Signs Vital Signs: Last Vital Signs Temp 97.0 F L 08/29/17 13:28 Pulse 66 08/29/17 15:19 Resp 19 08/29/17 13:28 BP 105/51 L 08/29/17 13:28 Pulse Ox 100 08/29/17 15:19 - Medical History PMH: Arthritis, Back Problems, Diabetes, HTN, Hypercholesterolemia Denies: Chronic Kidney Disease - Surgical History Surgical History: Appendectomy Other surgeries: ? cardiac vein surgery- (?stent) 9yrs ago - Family History Family History: States: Unknown Family Hx - Home Medications Home Medications: Ambulatory Orders Medication Instructions Recorded Losartan/Hydrochlorothiazide 1 tab PO DAILY 10/19/16 [Losartan-Hctz 50-12.5 mg Tab] Metoprolol Tartrate [Lopressor] 25 mg PO DAILY 10/19/16 Simvastatin 40 mg PO HS 10/19/16 metFORMIN [glucOPHAGE] 500 mg PO BID 10/19/16 Alendronate [Fosamax] 70 mg PO WE 03/09/17 Aspirin [Ecotrin] 81 mg PO DAILY 03/09/17 Omeprazole 40 mg PO DAILY 03/09/17 - Allergies Allergies/Adverse Reactions: Allergies Allergy/AdvReac Type Severity Reaction Status Date / Time No Known Allergies Allergy Verified 03/09/17 13:58 DAISY Risk Score for UA/NSTEMI - DAISY Risk Score Age > 64: YES 3 or more CAD Risk Factors: YES Aspirin use in past 7 days: YES Severe Angina: YES EKG ST changes greater than 0.5mm: NO Positive Cardiac Marker: NO DAISY Score: 4 Risk %: 20% Review of Systems ROS Statement: Except As Marked, All Systems Reviewed And Found Negative Constitutional: Negative for: Fever, Chills Cardiovascular: Positive for: Chest Pain. Negative for: Palpitations, Orthopnea , Edema, Light Headedness Respiratory: Negative for: Cough, Shortness of Breath Gastrointestinal: Negative for: Nausea, Vomiting, Abdominal Pain Genitourinary Female: Negative for: Dysuria, Frequency Musculoskeletal: Negative for: Neck Pain Skin: Negative for: Rash, Lesions, Jaundice Neurological: Negative for: Weakness, Numbness Psych: Negative for: Anxiety Physical Exam - Reviewed Nursing Documentation Reviewed: Yes Vital Signs Reviewed: Yes - Physical Exam Appears: Positive for: Well, Non-toxic, No Acute Distress Head Exam: Positive for: ATRAUMATIC, NORMAL INSPECTION, NORMOCEPHALIC Skin: Positive for: Normal Color, Warm, DRY Eye Exam: Positive for: EOMI, Normal appearance, PERRL ENT: Positive for: Normal ENT Inspection Neck: Positive for: Normal, Painless ROM Cardiovascular/Chest: Positive for: Regular Rate, Rhythm Respiratory: Positive for: CNT, Normal Breath Sounds Gastrointestinal/Abdominal: Positive for: Bowel Sounds, Soft. Negative for: Tenderness, Guarding Extremity: Positive for: Normal ROM. Negative for: Swelling Neurologic/Psych: Positive for: Alert, Oriented. Negative for: Motor/Sensory Deficits - Laboratory Results Result Diagrams: 08/29/17 14:05 08/29/17 14:05 - ECG ECG: Positive for: Interpreted By [place] ECG Rhythm: Positive for: Normal QRS, Nonspecific Changes Rate: 66 O2 Sat by Pulse Oximetry: 100 Pulse Ox Interpretation: Normal - Radiology X-Ray: Interpreted by [place] X-Ray Interpretation: No Acute Disease Medical Decision Making Medical Decision Making: Workup initiated in ED for chest pain in patient with multiple risk factors for CAD. 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 labs reviewed- mild anemia, trop neg, mild hyperglycemia CXR reviewed, no acute infiltrate or CHF pattern Dr Mishra contacted case discussed, place Obs tele for r/o AMI. Disposition - Clinical Impression Clinical Impression: Chest pain - Patient ED Disposition Is Patient to be Admitted: Yes Counseled Patient/Family Regarding: Studies Performed - Disposition Disposition Time: 15:01 Condition: FAIR - Pt Status Changed To: Hospital Disposition Of: Observation - POA Present On Arrival: Poor Glycemic Control
--- NOTE | 2017-08-29 16:11 | RAD ---
HISTORY: chest pain COMPARISON: Chest radiographs 10/19/2016. TECHNIQUE: Chest PA and lateral FINDINGS: LUNGS: No active pulmonary disease. PLEURA: No significant pleural effusion identified. No pneumothorax apparent. CARDIOVASCULAR: Normal. OSSEOUS STRUCTURES: No significant abnormalities. VISUALIZED UPPER ABDOMEN: Normal. OTHER FINDINGS: Mild left hemidiaphragm elevation again evident. IMPRESSION: No interval acute cardiopulmonary disease appreciated.
[2017-08-29] MEDS: Insulin Regular 100 units/ml SC SCH (22:30)
[2017-08-30] MEDS: Insulin Regular 100 units/ml SC SCH (06:50)
--- NOTE | 2017-08-30 08:36 | HP ---
HISTORY OF PRESENT ILLNESS: This is a 77-year-old female with history of multiple medical problems, presented to emergency room for recurrent chest pain, mostly at rest for the last 12 hours prior to admission. Patient presented to emergency room for evaluation of chest pain and admitted for further management. Patient denied to have any chest pain, any shortness of breath or palpitation or any other cardiovascular symptoms associated with her chest pain. Other review of systems is negative. ALLERGIES: NO KNOWN ALLERGY. HOME MEDICATIONS: As per MAR. PAST MEDICAL HISTORY: Hypertension, type 2 diabetes mellitus, hypercholesterolemia, osteoarthritis, osteoporosis. FAMILY HISTORY: Not contributory. SOCIAL HISTORY: No history of smoking, EtOH or substance abuse. PHYSICAL EXAMINATION: GENERAL: Patient is in bed, comfortable, not in any cardiopulmonary distress at the time of this examination. She was seen in the emergency room with her daughter and son at the bedside. VITAL SIGNS: Blood pressure 126/76, temperature 98, respiratory rate 20, and pulse 71. HEENT: Pupils equal, reactive to light. Normal-appearing mucosa of the conjunctivae, oropharyngeal and nasal membrane mucosa. NECK: Supple. No JVD. No carotid bruit. No lymph node. No thyromegaly. CHEST AND LUNGS: Bilateral symmetrical expansion. Good air exchange. No rales, no rhonchi. CARDIOVASCULAR SYSTEM: PMI not localized. S1, S2. No additional sounds. ABDOMEN: Normoactive bowel sounds. No tenderness. No organomegaly. No masses. EXTREMITIES: No cyanosis, no clubbing, no edema. REMOTE SENSING ADVISOR: Alert, awake, oriented x3. No neurological deficit could be appreciated. ASSESSMENT: Chest pain, rule out myocardial infarction, hypertension, type 2 diabetes mellitus, hypercholesterolemia. PLAN: Cardiac enzymes every 8 hours x3. Cardiology consult and follow recommendations. Resume patient's home medications, continue aspirin and beta-harika, Accu-Cheks with insulin coverage as needed. Jony Mishra MD
[2017-08-30 08:46] VITALS: RESP 20; TEMP 98; O2SAT 97
[2017-08-30] MEDS ORDERED: HCTZ/Losartan 12.5/50 Tab PO SCH (09:00)
[2017-08-30] MEDS ORDERED: Pantoprazole 40 mg EC Tab PO SCH (09:00)
[2017-08-30 13:07] VITALS: BP 106/64; PULSE 57
--- NOTE | 2017-08-30 14:17 | CP.PCM.CON ---
History of Present Illness - History of Present Illness History of Present Illness: 77 year old female with chest pain at rest resolved upon hospital admission. Cardiac enzymes negative x 3, EKG with no acute changes. Pt has c/o of similar chest pain in past as outpt but has not f/u with scheduled outpt stress testing. Past Patient History - Infectious Disease Hx of Infectious Diseases: None - Past Medical History & Family History Past Medical History?: Yes - Past Social History Smoking Status: Never Smoked - CARDIAC Hx Cardiac Disorders: Yes Hx Hypercholesterolemia: Yes Hx Hypertension: Yes - PULMONARY Hx Respiratory Disorders: No - NEUROLOGICAL Hx Neurological Disorder: No - HEENT Hx HEENT Problems: No - RENAL Hx Chronic Kidney Disease: No - ENDOCRINE/METABOLIC Hx Endocrine Disorders: Yes Hx Diabetes Mellitus Type 2: Yes - HEMATOLOGICAL/ONCOLOGICAL Hx Blood Disorders: No - INTEGUMENTARY Hx Dermatological Problems: No - MUSCULOSKELETAL/RHEUMATOLOGICAL Hx Musculoskeletal Disorders: Yes Hx Arthritis: Yes Hx Back Pain: Yes (back problems) Hx Falls: No - GASTROINTESTINAL Hx Gastrointestinal Disorders: No - GENITOURINARY/GYNECOLOGICAL Hx Genitourinary Disorders: No - PSYCHIATRIC Hx Psychophysiologic Disorder: No Hx Substance Use: No - SURGICAL HISTORY Hx Surgeries: Yes Hx Appendectomy: Yes Other/Comment: surgery for "hole in heart" - ANESTHESIA Hx Anesthesia: Yes Hx Anesthesia Reactions: No Hx Malignant Hyperthermia: No Meds Allergies/Adverse Reactions: Allergies Allergy/AdvReac Type Severity Reaction Status Date / Time No Known Allergies Allergy Verified 03/09/17 13:58 - Medications Medications: Current Medications Acetaminophen (Tylenol 325mg Tab) 650 mg PO Q4 PRN PRN Reason: Headache Last Admin: 08/29/17 21:41 Dose: 650 mg Alendronate Sodium (Fosamax) 70 mg PO WE [facility] Aspirin (Ecotrin) 81 mg PO DAILY [facility] Last Admin: 08/30/17 08:55 Dose: 81 mg Atorvastatin Calcium (Lipitor) 20 mg PO HS [facility] Last Admin: 08/30/17 08:54 Dose: 20 mg HCTZ/Losartan Potassium (Hyzaar 12.5 Mg-50 Mg) 1 tab PO DAILY [facility] Last Admin: 08/30/17 08:55 Dose: 1 tab Heparin Sodium (Porcine) (Heparin) 5,000 units SC Q12 [place] PRN Reason: Protocol Last Admin: 08/30/17 08:57 Dose: 5,000 units Insulin Human Regular (Humulin R) 0 units SC ACCU-CHECK [facility] PRN Reason: Protocol Last Admin: 08/30/17 06:50 Dose: Not Given Metformin HCl (Glucophage) 500 mg PO BID [facility] Last Admin: 08/30/17 08:55 Dose: 500 mg Metoprolol Tartrate (Lopressor) 25 mg PO DAILY [facility] Last Admin: 08/30/17 08:56 Dose: 25 mg Pantoprazole Sodium (Protonix Ec Tab) 40 mg PO DAILY [facility] Last Admin: 08/30/17 08:55 Dose: 40 mg Physical Exam - Head Exam Head Exam: NORMAL INSPECTION - ENT Exam ENT Exam: Mucous Membranes Moist - Respiratory Exam Respiratory Exam: Clear to Auscultation Bilateral - Cardiovascular Exam Cardiovascular Exam: REGULAR RHYTHM - GI/Abdominal Exam GI & Abdominal Exam: Normal Bowel Sounds - Extremities Exam Extremities exam: Positive for: normal inspection Results - Vital Signs Recent Vital Signs: Last Vital Signs Temp 98.0 F 08/30/17 13:07 Pulse 57 L 08/30/17 13:07 Resp 20 08/30/17 13:07 BP 106/64 08/30/17 13:07 Pulse Ox 97 08/30/17 13:07 - Labs Result Diagrams: 08/29/17 14:05 08/29/17 14:05 Labs: Laboratory Results - last 24 hr 08/29/17 08/29/17 08/29/17 14:05 14:05 17:34 WBC 10.3 RBC 4.56 Hgb 11.7 L D Hct 37.1 MCV 81.5 MCH 25.6 L MCHC 31.4 L RDW 16.1 H Plt Count 232 MPV 9.8 Neut % (Auto) 70.0 Lymph % (Auto) 22.5 [place] % (Auto) 5.2 Eos % (Auto) 1.9 Baso % (Auto) 0.4 Neut # 7.2 H Lymph # 2.3 [place] # 0.5 Eos # 0.2 Baso # 0.0 APTT Sodium 139 Potassium 3.9 Chloride 102 Carbon Dioxide 32 H Anion Gap 9 L BUN 18 H Creatinine 0.6 L Est GFR ( Amer) > 60 Est GFR (Non-Af Amer) > 60 POC Glucose (mg/dL) 110 Random Glucose 166 H Calcium 9.1 Total Bilirubin 0.5 AST 23 ALT 21 Alkaline Phosphatase 68 Troponin I < 0.0120 NT-Pro-B Natriuret Pep 53.5 Total Protein 6.5 Albumin 3.7 Globulin 2.8 Albumin/Globulin Ratio 1.3 08/29/17 08/29/17 08/30/17 21:10 22:24 04:35 WBC RBC Hgb Hct MCV MCH MCHC RDW Plt Count MPV Neut % (Auto) Lymph % (Auto) [place] % (Auto) Eos % (Auto) Baso % (Auto) Neut # Lymph # [place] # Eos # Baso # APTT Sodium Potassium Chloride Carbon Dioxide Anion Gap BUN Creatinine Est GFR ( Amer) Est GFR (Non-Af Amer) POC Glucose (mg/dL) 178 H Random Glucose Calcium Total Bilirubin AST ALT Alkaline Phosphatase Troponin I < 0.0120 < 0.0120 NT-Pro-B Natriuret Pep Total Protein Albumin Globulin Albumin/Globulin Ratio 08/30/17 08/30/17 08/30/17 04:35 05:29 11:01 WBC RBC Hgb Hct MCV MCH MCHC RDW Plt Count MPV Neut % (Auto) Lymph % (Auto) [place] % (Auto) Eos % (Auto) Baso % (Auto) Neut # Lymph # [place] # Eos # Baso # APTT 29.3 Sodium Potassium Chloride Carbon Dioxide Anion Gap BUN Creatinine Est GFR ( Amer) Est GFR (Non-Af Amer) POC Glucose (mg/dL) 129 H 175 H Random Glucose Calcium Total Bilirubin AST ALT Alkaline Phosphatase Troponin I NT-Pro-B Natriuret Pep Total Protein Albumin Globulin Albumin/Globulin Ratio Assessment & Plan - Assessment and Plan (Free Text) Assessment: No unstable cardiac symptoms Troponin negative x 3 No acute EKG changes Pt chest pain free Pt can be discharged and have outpt stress test to evaluate chest pain
--- NOTE | 2017-08-30 17:01 | CARD ---
APPROVED REPORT EKG Measurement Heart [id number] <Conclusion> Normal sinus rhythm Nonspecific ST abnormality Abnormal ECG
[2017-09-01] MEDS ORDERED: ALENDRONATE 70 MG TAB PO SCH (20:56)
== END 2017-08-30 15:25 | disposition home or self-care (01) ==
LOC: H.ER 13:10 → H.ERHOLD 15:12 → H.TEL 18:26
PROVIDERS: ADMIT Internal Medicine; ATTEND Internal Medicine
DX: R07.9 Chest pain, unspecified (principal); M19.90 Unspecified osteoarthritis, unspecified site; E11.65 Type 2 diabetes mellitus with hyperglycemia; I10 Essential (primary) hypertension; E78.00 Pure hypercholesterolemia, unspecified; D64.9 Anemia, unspecified; M81.0 Age-related osteoporosis without current pathological fracture
CPT/HCPCS: 36415; 71020; 80053; 82948; 83880; 84484; 85025; 85730; 93005; 99284; G0378; J1644

== ENCOUNTER 2018-01-03 10:46 | Emergency (ER) | payer MEDICARE ==
[2018-01-03 10:53] VITALS: BMI 30.1
[2018-01-03 10:56] VITALS: BP 132/81; PULSE 107; RESP 20; TEMP 100; O2SAT 100
--- NOTE | 2018-01-03 11:25 | ED PDOC ---
HPI: General Adult Time Seen by Provider: 01/03/18 11:02 Chief Complaint (Nursing): Flu-like Symptoms Chief Complaint (Provider): Flu-like symptoms History Per: Patient History/Exam Limitations: no limitations Onset/Duration Of Symptoms: Days (x5) Current Symptoms Are (Timing): Still Present Additional Complaint(s): Antonina Allred is a 77 year old female, with a past medical history of diabetes , HTN and arthritis, who presents to the emergency department complaining of body aches, headache, nausea, intermittent chills, and loss of appetite onset for x5 days. Patient describes the headache as sharp and associated with b/l eye and facial pain. She denies having similar head pain in the past. Patient states she feels hot but did not take her temperature. She also reports x3 days ago she ate fish and developed a rash afterwards. However, patient states she doesn't have any allergies. She denies any vomiting, chest pain or shortness of breath. No further medical complaints. PMD: Dr. Jony Mishra Past Medical History Reviewed: Historical Data, Nursing Documentation, Vital Signs Vital Signs: Last Vital Signs Temp 100 F H 01/03/18 10:54 Pulse 107 H 01/03/18 10:54 Resp 20 01/03/18 10:54 BP 132/81 01/03/18 10:54 Pulse Ox 100 01/03/18 16:31 - Medical History PMH: Arthritis, Back Problems, Diabetes, HTN, Hypercholesterolemia Denies: Chronic Kidney Disease - Surgical History Surgical History: Appendectomy, Coronary Stent - Family History Family History: States: Unknown Family Hx - Social History Current smoker - smoking cessation education provided: No Alcohol: None Drugs: Denies - Immunization History Hx Tetanus Toxoid Vaccination: No Hx Influenza Vaccination: No Hx Pneumococcal Vaccination: No - Home Medications Home Medications: Ambulatory Orders Medication Instructions Recorded Losartan/Hydrochlorothiazide 1 tab PO DAILY 10/19/16 [Losartan-Hctz 50-12.5 mg Tab] Metoprolol Tartrate [Lopressor] 25 mg PO DAILY 10/19/16 Simvastatin 40 mg PO HS 10/19/16 metFORMIN [glucOPHAGE] 500 mg PO BID 10/19/16 Alendronate [Fosamax] 70 mg PO WE 03/09/17 Aspirin [Ecotrin] 81 mg PO DAILY 03/09/17 Omeprazole 40 mg PO DAILY 03/09/17 Insulin Glargine, Recombina 10 unit SC PRN PRN 08/29/17 [Lantus] DiphenhydrAMINE [Benadryl] 25 mg PO Q6H PRN #15 cap 01/03/18 Ibuprofen [Motrin] 600 mg PO Q6H PRN #20 tab 01/03/18 Ondansetron [Zofran Odt] 4 mg PO Q8H PRN #15 odt 01/03/18 Oseltamivir [Tamiflu] 75 mg PO BID #9 cap 01/03/18 - Allergies Allergies/Adverse Reactions: Allergies Allergy/AdvReac Type Severity Reaction Status Date / Time FISH Allergy ITCHING Verified 01/03/18 11:06 Review of Systems ROS Statement: Except As Marked, All Systems Reviewed And Found Negative Constitutional: Positive for: Fever (subjective), Chills (intermittent), Other ( body aches) Eyes: Positive for: Pain (b/l) Cardiovascular: Negative for: Chest Pain Respiratory: Negative for: Shortness of Breath Gastrointestinal: Positive for: Nausea. Negative for: Vomiting Skin: Positive for: Rash Neurological: Positive for: Headache Physical Exam - Reviewed Nursing Documentation Reviewed: Yes Vital Signs Reviewed: Yes - Physical Exam Appears: Positive for: Non-toxic Head Exam: Positive for: ATRAUMATIC, NORMOCEPHALIC Skin: Positive for: Normal Color, Warm, Dry, Rash (urticarial on face) Eye Exam: Positive for: Normal appearance, EOMI, PERRL Neck: Positive for: Painless ROM, Supple Cardiovascular/Chest: Positive for: Regular Rate, Rhythm. Negative for: Murmur Respiratory: Positive for: Normal Breath Sounds. Negative for: Respiratory Distress Gastrointestinal/Abdominal: Positive for: Normal Exam, Soft. Negative for: Tenderness Back: Positive for: Normal Inspection. Negative for: L CVA Tenderness, R CVA Tenderness, Vertebral Tenderness Extremity: Positive for: Normal ROM (all extremities). Negative for: Deformity , Swelling Neurologic/Psych: Positive for: Alert, Oriented. Negative for: Motor/Sensory Deficits - Laboratory Results Result Diagrams: 01/03/18 11:38 01/03/18 11:38 - ECG Interpretation Of ECG: NSR @ 92, nonspecific ST abnormality. O2 Sat by Pulse Oximetry: 100 (RA) Pulse Ox Interpretation: Normal - Radiology X-Ray: Interpreted by Me X-Ray Interpretation: No Acute Disease Medical Decision Making Medical Decision Making: Initial Impression: Initial Plan: --Head w/o contrast [CT] --EKG --CMP --Urine dipstick --CBC w/ differential --PTT --PT --Glucose, Blood, POC --Urinalysis --Reevaluation 11:[address] FINDINGS: HEMORRHAGE: No intracranial hemorrhage. BRAIN: No mass effect or edema. No atrophy or chronic microvascular ischemic changes. VENTRICLES: Unremarkable. No hydrocephalus. CALVARIUM: No significant abnormalities. Hyperostotic changes frontal bones. Normal variant, unchanged PARANASAL SINUSES: Unremarkable as visualized. No significant inflammatory changes. MASTOID AIR CELLS: Unremarkable as visualized. No inflammatory changes. OTHER FINDINGS: None. IMPRESSION: No acute intracranial abnormalities. No significant findings to account for the clinical presentation. No significant interval change compared to the prior examination(s). Scribe Attestation: Documented by Justino Reed, acting as a scribe for Amaris Bone MD Provider Scribe Attestation: All medical record entries made by the Scribe were at my direction and personally dictated by me. I have reviewed the chart and agree that the record accurately reflects my personal performance of the history, physical exam, medical decision making, and the department course for this patient. I have also personally directed, reviewed, and agree with the discharge instructions and disposition. Disposition - Clinical Impression Clinical Impression: Influenza-like symptoms, Rash - Disposition Referrals: Jony Mishra MD [Staff Provider] - [facility] [Outside] Condition: STABLE Prescriptions: DiphenhydrAMINE [Benadryl] 25 mg PO Q6H PRN #15 cap PRN Reason: Itching / Pruritus Ibuprofen [Motrin] 600 mg PO Q6H PRN #20 tab PRN Reason: Pain, Moderate (4-7) Ondansetron [Zofran Odt] 4 mg PO Q8H PRN #15 odt PRN Reason: Nausea/Vomiting Oseltamivir [Tamiflu] 75 mg PO BID #9 cap Instructions: Flu, Skin Rash Forms: [employer] Connect (Belgian) Print Language: K[place]ILI
--- NOTE | 2018-01-03 11:45 | CT ---
PROCEDURE: CT HEAD WITHOUT CONTRAST. HISTORY: Vertigo COMPARISON: 01/19/2011 TECHNIQUE: Axial computed tomography images were obtained through the head/brain without intravenous contrast. Coronal and sagittal reconstructed images. Radiation dose: Total exam DLP = 1089.82 mGy-cm. This CT exam was performed using one or more of the following dose reduction techniques: Automated exposure control, adjustment of the mA and/or kV according to patient size, and/or use of iterative reconstruction technique. FINDINGS: HEMORRHAGE: No intracranial hemorrhage. BRAIN: No mass effect or edema. No atrophy or chronic microvascular ischemic changes. VENTRICLES: Unremarkable. No hydrocephalus. CALVARIUM: No significant abnormalities. Hyperostotic changes frontal bones. Normal variant, unchanged PARANASAL SINUSES: Unremarkable as visualized. No significant inflammatory changes. MASTOID AIR CELLS: Unremarkable as visualized. No inflammatory changes. OTHER FINDINGS: None. IMPRESSION: No acute intracranial abnormalities. No significant findings to account for the clinical presentation. No significant interval change compared to the prior examination(s).
[2018-01-03 11:49] LABS: BASO % 0.4 % (0.0-2.0); EOS # 0.1 K/uL (0.0-0.7); HEMOGLOBIN 11.8 g/dL (12.0-16.0); LYMPH # 0.4 K/uL (1.0-4.3); LYMPH % 4.6 % (20.0-40.0); MEAN CORPUSCULAR HEMOGLOBIN 25.4 pg (27.0-31.0); MEAN CORPUSCULAR HGB CONC 32.6 g/dL (33.0-37.0); MEAN PLATELET VOLUME 9.6 fl (7.2-11.7); MONO # 0.3 K/uL (0.0-0.8); MONO % 4.1 % (0.0-10.0); NEUT # 7.2 K/uL (1.8-7.0); NEUT % 89.9 % (50.0-75.0); PLATELET COUNT 143 K/uL (130-400); RBC 4.64 Mil/uL (3.80-5.20); RED CELL DISTRIBUTION WIDTH 16.5 % (11.5-14.5)
[2018-01-03 12:02] LABS: ALBUMIN 3.1 g/dL (3.5-5.0); ALT/SGPT 42 U/L (9-52); AST/SGOT 26 U/L (14-36); BLOOD UREA NITROGEN 17 mg/dl (7-17); CALCIUM 8.7 mg/dL (8.4-10.2); GFR AFRICAN-AMERICAN > 60; GFR NON-AFRICAN AMERICAN > 60
[2018-01-03] MEDS ORDERED: Sodium Chloride 0.9% 1,000 ML IV STA (12:05)
[2018-01-03] MEDS ORDERED: DiphenhydrAMINE 50 mg/ml Inj IVP STA (12:05)
[2018-01-03 12:10] LABS: INR 1.3 (0.9-1.2); PROTHROMBIN TIME 14.4 Seconds (9.8-13.1)
[2018-01-03 12:34] LABS: PARTIAL THROMBOPLASTIN TIME 26.2 Seconds (25.6-37.1)
[2018-01-03] MEDS ORDERED: DiphenhydrAMINE 50 mg/ml Inj ONE (12:53)
[2018-01-03 13:41] LABS: ANISOCYTOSIS SLIGHT; EOSINOPHIL 1 % (0-7); LYMPHOCYTE 4 % (20-50); MONOCYTE 4 % (0-10); NEUTROPHIL 91 % (42-75); PLATELET ESTIMATE NORMAL (NORMAL); TOTAL CELLS COUNTED 100
[2018-01-03 13:42] LABS: HYPOCHROMIC MODERATE; OVALOCYTES SLIGHT; SCHISTOCYTES SLIGHT; TARGET CELLS SLIGHT; TEARDROP CELLS SLIGHT; TOXIC GRANULATION PRESENT
[2018-01-03 14:37] LABS: SQUAMOUS EPITHIAL < 1 /hpf (0-5); URINE BACTERIA RARE (<OCC); URINE BILIRUBIN NEGATIVE (NEGATIVE); URINE BLOOD NEGATIVE (NEGATIVE); URINE CLARITY CLEAR (Clear); URINE COLOR YELLOW (YELLOW); URINE GLUCOSE (UA) 50 mg/dL (Normal); URINE LEUKOCYTE ESTERASE NEG Leu/uL (Negative); URINE PROTEIN NEGATIVE (NEGATIVE)
--- NOTE | 2018-01-03 16:55 | RAD ---
HISTORY: Nausea COMPARISON: 08/29/2017 FINDINGS: LUNGS: No active pulmonary disease. PLEURA: No significant pleural effusion identified, no pneumothorax apparent. CARDIOVASCULAR: No radiographic findings to suggest acute or significant cardiovascular disease. OSSEOUS STRUCTURES: No significant abnormalities. VISUALIZED UPPER ABDOMEN: Normal. OTHER FINDINGS: None. IMPRESSION: No active disease. No significant interval change compared to the prior examination(s). Concordant results with the preliminary interpretation rendered by the emergency department physician procedure.
--- NOTE | 2018-01-04 10:49 | CARD ---
APPROVED REPORT EKG Measurement Heart [id number] MD [id number] <Conclusion> Normal sinus rhythm motion artefact-recommend repeat
== END 2018-01-03 17:10 | disposition home or self-care (01) ==
LOC: H.ER 10:46
DX: J11.1 Influenza due to unidentified influenza virus with other respiratory manifestations (principal); R21 Rash and other nonspecific skin eruption; E11.9 Type 2 diabetes mellitus without complications; E78.00 Pure hypercholesterolemia, unspecified; I10 Essential (primary) hypertension; M19.90 Unspecified osteoarthritis, unspecified site; Z79.4 Long term (current) use of insulin; Z79.82 Long term (current) use of aspirin; Z95.5 Presence of coronary angioplasty implant and graft
CPT/HCPCS: 70450; 71045; 80053; 81003; 82948; 85025; 85610; 85730; 87804; 93005; 96374; 99283; J1200; J2405; J7040

== ENCOUNTER 2018-07-17 11:56 | Emergency (ER) | payer MEDICARE ==
[2018-07-17 12:19] VITALS: BMI 30.4
--- NOTE | 2018-07-17 13:27 | ED PDOC ---
Upper Extremity Pain/Injury Time Seen by Provider: 07/17/18 12:40 Chief Complaint (Nursing): Upper Extremity Problem/Injury Chief Complaint (Provider): right shoulder pain History Per: Patient History/Exam Limitations: no limitations Onset/Duration Of Symptoms: Days (x3) Additional Complaint(s): Antonina Allred, a 78 year old female with past medical history of diabetes, hypertension and hypercholesterolemia, presents to the ED with right shoulder pain onset 3 days ago. Patient states that she has experienced similar pain in her left shoulder in the past and the pain worsens with movement and if touched on the outside. She denies trauma, change in activities, numbness or tingling. Patient states she has been taking Motrin at home with no relief. No further medical complaints. Past Medical History Reviewed: Historical Data, Nursing Documentation, Vital Signs Vital Signs: Last Vital Signs Temp 97.4 F L 07/17/18 12:17 Pulse 75 07/17/18 12:17 Resp 20 07/17/18 12:17 BP 150/83 07/17/18 12:17 Pulse Ox 98 07/17/18 12:17 - Medical History PMH: Arthritis, Back Problems, Diabetes, HTN, Hypercholesterolemia Denies: Chronic Kidney Disease - Surgical History Surgical History: Appendectomy, Coronary Stent - Family History Family History: States: Unknown Family Hx - Social History Current smoker - smoking cessation education provided: No Alcohol: None Drugs: Denies - Immunization History Hx Tetanus Toxoid Vaccination: No Hx Influenza Vaccination: No Hx Pneumococcal Vaccination: No - Home Medications Home Medications: Ambulatory Orders Medication Instructions Recorded Losartan/Hydrochlorothiazide 1 tab PO DAILY 10/19/16 [Losartan-Hctz 50-12.5 mg Tab] Metoprolol Tartrate [Lopressor] 25 mg PO DAILY 10/19/16 Simvastatin 40 mg PO HS 10/19/16 metFORMIN [glucOPHAGE] 500 mg PO BID 10/19/16 Alendronate [Fosamax] 70 mg PO WE 03/09/17 Aspirin [Ecotrin] 81 mg PO DAILY 03/09/17 Omeprazole 40 mg PO DAILY 03/09/17 Insulin Glargine, Recombina 10 unit SC PRN PRN 08/29/17 [Lantus] DiphenhydrAMINE [Benadryl] 25 mg PO Q6H PRN #15 cap 01/03/18 Ibuprofen [Motrin] 600 mg PO Q6H PRN #20 tab 01/03/18 Ondansetron [Zofran Odt] 4 mg PO Q8H PRN #15 odt 01/03/18 Oseltamivir [Tamiflu] 75 mg PO BID #9 cap 01/03/18 traMADol [Ultram] 50 mg PO Q6H PRN #20 tab 07/17/18 - Allergies Allergies/Adverse Reactions: Allergies Allergy/AdvReac Type Severity Reaction Status Date / Time FISH Allergy ITCHING Verified 01/03/18 11:06 Review of Systems ROS Statement: Except As Marked, All Systems Reviewed And Found Negative Musculoskeletal: Positive for: Shoulder Pain (right). Negative for: Other (numbness or tingling in shoulder) Physical Exam - Reviewed Nursing Documentation Reviewed: Yes Vital Signs Reviewed: Yes - Physical Exam Appears: Positive for: Well, Non-toxic, No Acute Distress Head Exam: Positive for: ATRAUMATIC, NORMAL INSPECTION, NORMOCEPHALIC Skin: Positive for: Normal Color, Warm, DRY Eye Exam: Positive for: Normal appearance ENT: Positive for: Normal ENT Inspection Neck: Positive for: Normal Cardiovascular/Chest: Positive for: Regular Rate, Rhythm. Negative for: Bradycardia, Tachycardia Respiratory: Positive for: Normal Breath Sounds. Negative for: Accessory Muscle Use, Respiratory Distress Back: Positive for: Normal Inspection Extremity: Positive for: Normal ROM (in right wrist and lbow), Tenderness (humeral head), Other (decreased ROM in right shoulder due to pain, no ecchymosis, erythema, esions). Negative for: Deformity, Swelling Neurologic/Psych: Positive for: Alert, Oriented - ECG O2 Sat by Pulse Oximetry: 98 (RA) Pulse Ox Interpretation: Normal Medical Decision Making Medical Decision Making: Time: 12:40 Initial Impression: Initial Plan: --Ultram 50 mg PO --Radiology right shoulder (+) clacified tendonitis on XR Scribe Attestation: Documented by Sosa Churchill, acting as a scribe for Joseline Zapien PA-C. Provider Scribe Attestation: All medical record entries made by the Scribe were at my direction and personally dictated by me. I have reviewed the chart and agree that the record accurately reflects my personal performance of the history, physical exam, medical decision making, and the department course for this patient. I have also personally directed, reviewed, and agree with the discharge instructions and disposition. Disposition - Clinical Impression Clinical Impression: Tendonitis, calcifying, shoulder - Patient ED Disposition Is Patient to be Admitted: No Counseled Patient/Family Regarding: Diagnosis, Need For Followup, Rx Given - Disposition Disposition: Routine/Home Disposition Time: 14:43 Condition: GOOD Prescriptions: traMADol [Ultram] 50 mg PO Q6H PRN #20 tab PRN Reason: Pain Instructions: Rotator Cuff Tendinitis Strengthening Exercises, Rotator Cuff Tendinitis Stretching Exercises, Calcific Tendonitis of the Shoulder (DC) Forms: [employer] (Slovak) Print Language: BURMESE
[2018-07-17] MEDS ORDERED: Naproxen 500 MG TAB PO STA (14:37)
[2018-07-17 15:26] VITALS: BP 148/78; PULSE 70; RESP 18; TEMP 97.8; O2SAT 99
--- NOTE | 2018-07-17 16:13 | RAD ---
Date of service: 07/17/2018 PROCEDURE: Radiographs of the Right Shoulder HISTORY: right shoulder pain COMPARISON: No prior. FINDINGS: BONES: Normal. No fracture. JOINTS: Acromioclavicular osteoarthritis. SOFT TISSUES: Normal. OTHER FINDINGS: None. IMPRESSION: No fracture.
== END 2018-07-17 15:26 | disposition home or self-care (01) ==
LOC: H.ER 11:56
DX: M75.31 Calcific tendinitis of right shoulder (principal); E11.9 Type 2 diabetes mellitus without complications; Z79.4 Long term (current) use of insulin; Z95.5 Presence of coronary angioplasty implant and graft; E78.00 Pure hypercholesterolemia, unspecified; I10 Essential (primary) hypertension; Z79.82 Long term (current) use of aspirin